=== PATIENT | female | born 1955 | race Caucasian/White ===

== ENCOUNTER 2019-05-31 08:15 | Day surgery (SDC) | payer SELFPAY ==
[~2019-05-31] VITALS: Ht 157.5 cm; Wt 43.5 kg
[~2019-05-31 08:15] MED LIST: KLONOPIN0.5 MG PO
[2019-05-31] MEDS ORDERED: VITAMIN B-12500 MCG PO (08:59)
[2019-05-31] MEDS ORDERED: CVS IBUPROFEN200 M3 PO (08:59)
[2019-05-31] MEDS ORDERED: PRESERVISION PO (09:00)
[2019-05-31 11:12] VITALS: BP 122/75
--- NOTE | 2019-06-06 09:35 | NUR ---
PER DR OLGUIN I ADVISED PATIENT THAT HER LAB WORK CAME BACK AND THE POLYPS WERE NON CANCEROUS. ADVISED TO REPEAT COLONOSCOPY IN 3 YEARS. PATIENT UNDERSTOOD.
== END 2019-05-31 11:26 | disposition home or self-care (01) | DRG 951 ==
LOC: ENDO 08:15 → ORM 11:00 → ENDO 11:26
PROVIDERS: ATTEND Surgery
PROC: 0DBL8ZX Excision of Transverse Colon, Via Natural or Artificial Opening Endoscopic, Diagnostic (ICD-10-PCS; principal; 2019-05-31)
PROC: 0DBN8ZX Excision of Sigmoid Colon, Via Natural or Artificial Opening Endoscopic, Diagnostic (ICD-10-PCS; 2019-05-31)
PROC: 3E0H8KZ Introduction of Other Diagnostic Substance into Lower GI, Via Natural or Artificial Opening Endoscopic (ICD-10-PCS; 2019-05-31)
DX: Z12.11 Encounter for screening for malignant neoplasm of colon (principal); D12.3 Benign neoplasm of transverse colon; D12.5 Benign neoplasm of sigmoid colon; K57.30 Diverticulosis of large intestine without perforation or abscess without bleeding; K64.8 Other hemorrhoids; I10 Essential (primary) hypertension; Z80.0 Family history of malignant neoplasm of digestive organs